=== PATIENT | female | born 1980 | race Caucasian/White ===

== ENCOUNTER 2023-11-10 14:00 | Outpatient (CLI) | payer MEDICARE, MEDICAID, SELFPAY ==
--- NOTE | 2023-11-10 14:00 | MM_ITS ---
WS: [id number] BILATERAL 3D TOMOSYNTHESIS DIGITAL SCREENING MAMMOGRAPHY WITH CAD CLINICAL INFORMATION: SCREENING HISTORY: Screening mammogram. No current complaints. COMPARISON: New baseline TECHNIQUE: Bilateral CC and MLO views. FINDINGS: The breasts are composed of heterogeneous fibroglandular density tissue, which can limit the detectio n of small underlying mass lesions. Indeterminant ovoid nodules in the LEFT breast several subareolar in location. Largest nodule inner LEFT breast measuring 8 mm. Recommend LEFT breast ultrasound in fu rther evaluation. Unremarkable RIGHT breast. MM/[id number] IMPRESSION: DENSITY:The breasts are heterogeneously dense, which may obscure small masses. BI-RADS: 0 - Incomplete: Need additional imaging evaluation FOLLOW UP: Need Additional Imaging Recommend LEFT breast ultrasound in further evaluation
== END 2023-11-10 14:01 | disposition home or self-care (01) ==
LOC: MOBLMAM 14:12
PROVIDERS: PCP Nurse Practitioner Acute Care; Visit Provider Nurse Practitioner Acute Care
DX: Z12.31 Encounter for screening mammogram for malignant neoplasm of breast (principal); R92.333 Mammographic heterogeneous density, bilateral breasts; N63.20 Unspecified lump in the left breast, unspecified quadrant
CPT/HCPCS: 77063; 77067